=== PATIENT | female | born 1965 | race Caucasian/White ===

== ENCOUNTER 2016-11-21 08:51 | Day surgery (SDC) | payer OTHER ==
[~2016-11-21] VITALS: Ht 167.6 cm; Wt 85.7 kg
[~2016-11-21 08:51] MED LIST: CITA20TA11 PO; LORA0.5T PO; NORE1TAB26 PO; Sodium Chloride LOK Flush 10 mL Syringe IV PRN; fentaNYL-PF 50 mCg/mL 2 mL Inj IVPUSH PRN
[2016-11-21 09:12] VITALS: BP 119/73; PULSE 74; RESP 16; O2SAT 96
[2016-11-21] MEDS: 0.9% Sodium Chloride 1,000 ML IV SCH ×2 (09:18→09:51)
[2016-11-21 10:03] VITALS: BP 140/68; PULSE 77; RESP 16; O2SAT 95
[2016-11-21 10:13] VITALS: BP 136/75; PULSE 66; RESP 16; O2SAT 94
[2016-11-21 10:23] VITALS: BP 117/69; PULSE 74; RESP 16; O2SAT 98
--- NOTE | 2016-11-21 13:41 | ENDO ---
[address] [address] ENDOSCOPY PROCEDURE PATIENT: JULIAN MEEHAN : 1965 MR#: [id number] ADMIT: 11/21/2016 JOB ID: [id number] PROCEDURE: Colonoscopy. INDICATION: Screening. Patient's ASA classification is I. Mallampati score is II. MEDICATIONS: Versed 6 mg, fentanyl 100 mcg. INSTRUMENT USED: PCF-H180AL. Prep quality was good. PROCEDURE DETAILS: After informed consent was obtained, the patient was brought into the GI suite, where she was placed on oxygen via nasal cannula and monitored with continuous pulse oximeter, telemetry, and blood pressure monitoring. A time-out was performed. Then, she was placed in a left lateral decubitus position and medications were administered for sedation. Digital rectal exam was performed, which was unremarkable. The colonoscope was then inserted into the rectum and advanced under direct visualization to the cecum, which was identified by the presence of the ileocecal valve and appendiceal orifice. Once the cecum was reached colonoscope was withdrawn back into the rectum. Mucosa and lumen were examined. In the rectum, retroflexion was performed. Following retroflexion, remaining air in the rectum was suctioned and procedure was completed. FINDINGS: Normal exam from rectum to cecum. IMPRESSION: Normal colonoscopy. RECOMMENDATIONS: Repeat colonoscopy in 10 years, sooner if symptoms should dictate. COMPLICATIONS: None. ESTIMATED BLOOD LOSS: Zero.
== END 2016-11-21 23:59 | disposition home or self-care (01) ==
LOC: END 08:51
PROVIDERS: ATTEND Internal Medicine Gastroenterology
DX: Z12.11 Encounter for screening for malignant neoplasm of colon (principal); N94.6 Dysmenorrhea, unspecified
CPT/HCPCS: G0121; G0500; J7030